=== PATIENT | female | born 1965 | race Hispanic/Latino ===

== ENCOUNTER 2019-02-04 22:56 | Emergency (ER) | payer OTHER ==
[~2019-02-04] VITALS: Ht 154.9 cm; Wt 59.0 kg
--- NOTE | 2019-02-05 00:03 | Diagnostic Imaging Report ---
Exam: Right knee 3 views History: Pain Comparison: None. Findings: No fracture or malalignment. Joint spaces preserved. Small effusion. Impression: No acute osseous abnormality Small effusion Signed by: Dr. Marck Flores M.D. on 02/04/2019 11:59 PM
== END 2019-02-05 01:26 | disposition home or self-care (01) ==
LOC: ER 22:56
DX: M25.561 Pain in right knee (principal); M25.461 Effusion, right knee; S83.411A Sprain of medial collateral ligament of right knee, initial encounter; S83.421A Sprain of lateral collateral ligament of right knee, initial encounter; Y93.01 Activity, walking, marching and hiking; Y92.008 Other place in unspecified non-institutional (private) residence as the place of occurrence of the external cause
CPT/HCPCS: 99283